=== PATIENT | male | born 1950 | race Caucasian/White ===

== ENCOUNTER 2024-12-05 15:05 | Emergency (ER) | payer MEDICARE, OTHER, SELFPAY ==
[2024-12-05 15:15] VITALS: BP 178/121
[2024-12-05 15:35] LABS: Hematocrit 46.0 % (39.0-52.0); Hemoglobin 15.9 g/dL (13.0-18.0); Mean Corp Hgb Conc. 34.6 g/dL (33.0-37.0); Mean Corpuscular Volume 84.2 fL (80.0-94.0); Nucleated Red Blood Cells % 0 % (-); Platelet Count 269 10^3/uL (130-400); Red Cell Dist. Width 12.9 % (11.5-14.5)
[2024-12-05 15:50] LABS: ALT (SGPT) 25 U/L (0-50); AST (SGOT) 26 U/L (17-59); Albumin 4.4 g/dl (3.5-5.0); Alkaline Phosphatase 92 U/L (38-126); Blood Urea Nitrogen 15 mg/dl (9-20); Calcium 9.8 mg/dl (8.4-10.2); Carbon Dioxide 26 mmol/L (22-30); Chloride 101 mmol/L (98-107); Glucose 345 mg/dl (70-99); Potassium 4.2 mmol/L (3.5-5.1); Sodium 134 mmol/L (135-145); Total Protein 7.0 g/dl (6.3-8.2); eGFR > 60.00
--- NOTE | 2024-12-05 19:04 | ED.GENMED ---
History of Present Illness
General
Chief Complaint: Fall
Source: patient and ambulance crew
Exam Limitations: none
Time Seen by Provider: 12/05/24 16:27
Nursing documentation reviewed up to this point in time: agreed with
History of Present Illness
History of Present Illness:
Note:
CHIEF COMPLAINT(S)
Home exercise incident with subsequent memory disturbance and mild back pain.
HISTORY OF PRESENT ILLNESS
The patient is a 74-year-old male who described experiencing an incident at home while engaging in an exercise involving a stationary device. During this activity, he collided with the equipment, leading to a fall. The incident occurred in November,
and an ambulance was called due to concerns from a friend who witnessed the event. The patient denies experiencing any significant pain, stating, 'Not really, just a little bit.' He did not lose consciousness during the event and was conscious upon
EMS arrival.
The patient arrived at the facility via ambulance, using a stretcher for transportation, though he cannot remember specific details about the incident, indicating potential memory disturbance. He reported feeling well overall and mentioned a past
history of being physically active, stating, 'Im very healthy for my age' and 'I used to dance.'
The patient denies the current use of marijuana.
PLAN
The patient will undergo imaging, specifically a CT scan of the head, to assess any possible injury from the fall and associated memory disturbance. He will remain at the facility for observation until the diagnostic tests are completed to ensure
safety prior to considering release.
PHYSICAL EXAM
General: Alert, no acute distress.
Skin: Warm, dry.
Head: Normocephalic, atraumatic.
Neck: Supple, trachea midline.
Eye Ears, nose, mouth and throat: Oral mucosa moist.
Cardiovascular: Normal peripheral perfusion, No edema.
Respiratory: Respirations are non-labored.
Gastrointestinal: Abdomen nondistended.
Back: Normal range of motion, Normal alignment.
Musculoskeletal: Normal range of motion, normal strength.
Neurological: Alert and oriented to person, place, time, and situation. No focal neurological deficit observed.
Psychiatric: Cooperative, appropriate mood & affect.
PROBLEM LIST
Acute: Fall with memory disturbance, mild back pain.
DIFFERENTIAL DIAGNOSIS
The Differential Diagnosis includes, in no particular order and is not limited to:
1. Concussion
2. Subdural hematoma
3. Post-concussive syndrome
4. Mild traumatic brain injury
5. Musculoskeletal pain
6. Spinal injury
7. Hypotension-induced syncope
8. Delirium
9. Cannabis use complications
10. Transient ischemic attack (TIA)
CARE-UPDATE
12/05/24 - 19:06
The patient remains neurologically intact with no syncope noted. CT of the head shows no intracranial hemorrhage, and lumbar x-ray reveals no fractures. The patient is ambulatory and hemodynamically stable, indicating he is ready for discharge.
Disposition:
SUMMARY OF ENCOUNTER
The patient, a 74-year-old male, was seen in the emergency department following a fall while exercising at home. The incident resulted in a minor head collision and mild back pain, with subsequent memory disturbance. Upon arrival via ambulance, he
was evaluated for potential head injury given his age and symptoms of memory issues. A CT scan of the head was conducted which showed no intracranial hemorrhage. The patient was observed to ensure stability prior to discharge. The patient was found
to be hemodynamically stable and was neurologically intact.
DISPOSITION
Discharge
ASSESSMENT
Fall with memory disturbance, mild back pain. Possible concussion monitored with no significant findings.
PLAN
The plan included a CT scan of the head to rule out intracranial injury. He was observed for neurological stability and maintained in the facility until this was assured.
INDEPENDENT REVIEW OF LABS AND INTERPRETATION OF TESTS
My independent interpretation of the CT scan of the head indicated no intracranial hemorrhage.
PATIENT EDUCATION AND COUNSELING
The patient was advised on how to monitor symptoms at home, including watching for any worsening of symptoms such as severe headaches, nausea/vomiting, abnormal behavior, or persistent memory issues. He was also advised to avoid activities that
could result in further falls or head injuries.
FOLLOW-UP INSTRUCTIONS
The patient was instructed to follow up with his primary care physician to continue monitoring his condition and to address any further concerns that may arise.
MEDICAL DECISION MAKING
-Complexity of Data Reviewed: Chronic conditions affecting care, possible mild traumatic brain injury, and musculoskeletal pain. Differential diagnosis includes concussion, subdural hematoma, post-concussive syndrome, mild traumatic brain injury,
musculoskeletal pain, spinal injury, hypotension-induced syncope, delirium, cannabis use complications, and transient ischemic attack (TIA).
-Data:
Category 1
My independent interpretation of the CT scan of the head showed no intracranial hemorrhage.
-Risk:
Consideration of Admission/Observation: Escalation of care including admission/observation was considered given the complexity and risk of the patients presenting complaint, exam findings, and/or their underlying comorbidities. However, ultimately
the patient is safe for outpatient management with close follow-up. Reasoning: Work-up is reassuring and does not reveal any acute life/organ-threatening processes; symptoms are well controlled upon reevaluation; the examination is reassuring,
vitals are stable; the patient is agreeable with discharge and reliable for follow-up.
DIAGNOSIS
- Fall with memory disturbance (R55)
- Back pain (M54.9)
Past History
Past History
ED Past Medical History: NIDDM and Psychiatric (Apparent history of schizophrenia as well as bipolar disorder)
ED Past Surgical History: Appendectomy
Social History
Tobacco: Non-smoker
Alcohol: None
Drug: None
Personal:
Living: with family
Employment: Not employed
Family History
Family History: Unable to obtain
Phy Exam
Physical Exam
Physical Exam:
.
Course
Orders/Labs/Results
Orders:
Orders
12/05/24 15:23
CT Head W/o Iv Contrast Urgent
Comment:
Reason For Exam: fall, unsure if headstrike
08/22/25 15:24
Lumbar Spine Complete, 4 View [CR Lumbar Spine Comp Min 4 Vw*] Urgent
Comment:
Reason For Exam: fall, lower back pain
12/05/24 15:26
Complete Blood Count/With Diff Urgent
Comprehensive Metabolic Panel Urgent
Abnormal Lab Results
12/05/24
15:26
WBC 12.4 H 10^3/uL
(4.8-10.8)
MPV 10.8 H fL
(7.4-10.4)
Abs Immat Gran (auto) 0.1 H 10^3/uL
(0-0.05)
Absolute Neuts (auto) 8.6 H 10^3/uL
(1.4-6.5)
Absolute Monos (auto) 1.3 H 10^3/uL
(0.1-0.6)
Lymphocytes % 19.1 L %
(20.5-51.1)
Monocytes % 10.3 H %
(1.7-9.3)
Sodium 134 L mmol/L
(135-145)
Glucose 345 H mg/dl
(70-99)
Total Bilirubin 1.8 H mg/dl
(0.2-1.3)
12/05/24 15:26
12/05/24 15:26
Vital Signs
Initial and Last Documented VS:
Initial Vital Signs
Temp Pulse Resp BP Pulse Ox
98.1 F 92 16 178/121 97
12/05/24 15:15 12/05/24 15:15 12/05/24 15:15 12/05/24 15:15 12/05/24 15:15
Last Documented Vital Signs
Temp Pulse Resp BP Pulse Ox
98.1 F 92 16 178/121 97
12/05/24 15:15 12/05/24 15:15 12/05/24 15:15 12/05/24 15:15 12/05/24 15:15
*Pulse Oximetry
SaO2: 97
Oxygen Mode of Delivery: Room air
Patient hypoxic: no
*Critical Care Note
Total Time (30-74mins, 75-104mins- exclusive of procedures): Not Applicable
ED Attending Note
-
Portions of this chart may have been created with voice recognition software.� Occasional wrong word or��sound alike� substitutions may have occurred due to the inherent limitations of voice recognition software.
Discharge Plan
Departure
Patient Disposition: Home (Routine Discharge)
Date of Disposition: 12/05/24
Time of Disposition: 19:09
Patient with high blood pressure during this ER visit?: Yes
Condition: Good
Discharge Problem:
Fall
Instructions: Preventing falls in adults
Prescriptions:
No Action
Depakote:
Water Pill
Unobtainable
Referrals:
NONE,* [Family Provider, Internal Medicine]
Activity Restrictions/Additional Instructions:
Follow up with primary care. Return for any concerns.
Interventions
Interventions:
*Risk Screen - Suicide Last Done: 12/05/24 19:02
*General Assessment Last Done: 12/05/24 19:03
*Neglect/Abuse Screening Last Done: 12/05/24 19:02
*ED- Fall Risk Assessment Last Done: 12/05/24 16:43
ED-Musculoskeletal Assessment Last Done: 12/05/24 19:02
ED- Neurological Assessment Last Done: 12/05/24 19:02
ED-Skin Assessment Last Done: 12/05/24 19:02
Discharge Date and Time
Print Language: UGANDAN
== END 2024-12-05 20:15 | disposition home or self-care (01) ==
LOC: EMR 15:05
PROVIDERS: EMERGENCY PHYSICIAN Emergency Medicine
DX: Z04.3 Encounter for examination and observation following other accident (principal); E11.9 Type 2 diabetes mellitus without complications; F20.9 Schizophrenia, unspecified; F31.9 Bipolar disorder, unspecified; W22.09XA Striking against other stationary object, initial encounter; Y93.A1 Activity, exercise machines primarily for cardiorespiratory conditioning; Y92.009 Unspecified place in unspecified non-institutional (private) residence as the place of occurrence of the external cause
CPT/HCPCS: 99284; 70450; 72110; 80053; 85025